=== PATIENT | female | born 1955 | race African-American/Black ===

== ENCOUNTER 2018-10-26 10:54 | Emergency (ER) | payer MEDICAID ==
[2018-10-26 11:37] LABS: Bilirubin Negative (Negative); Blood, Urine Trace (Negative); Clarity Clear (Clear); Glucose, Urine (Dipstick) Negative (Negative); Leukocyte Moderate (Negative); Nitrite Positive (Negative); Protein, Urine (Dipstick) 30 mg/dL (Neg-Trace); pH, Urine 5.5 (5.0-9.0)
[2018-10-26 11:40] LABS: Bacteria/HPF 2+ HPF (None Seen); RBC/HPF 0-3 HPF (0-3); Squamous Epithelial 0-3 HPF (0-3)
== END 2018-10-26 12:16 | disposition home or self-care (01) ==
LOC: MADERS 10:54
DX: N39.0 Urinary tract infection, site not specified (principal); B37.0 Candidal stomatitis; L30.9 Dermatitis, unspecified; I10 Essential (primary) hypertension; F17.210 Nicotine dependence, cigarettes, uncomplicated
CPT/HCPCS: 81003; 81015; 99283